=== PATIENT | male | born 1995 | race Caucasian/White ===

== ENCOUNTER 2021-01-11 20:33 | Emergency (ER) | payer MEDICAID ==
[~2021-01-11] VITALS: Ht 165.1 cm; Wt 70.3 kg
[2021-01-11 20:56] VITALS: Ht 165.1 cm; Wt 70.3 kg
[2021-01-11] MEDS ORDERED: FLE10 PO (21:52)
[2021-01-11] MEDS ORDERED: IBU600 M2 PO (21:52)
[2021-01-11 22:08] VITALS: BP 162/104
== END 2021-01-11 22:08 | disposition home or self-care (01) ==
LOC: ED 20:33
DX: S20.212A Contusion of left front wall of thorax, initial encounter (principal); W18.30XA Fall on same level, unspecified, initial encounter; Y93.23 Activity, snow (alpine) (downhill) skiing, snowboarding, sledding, tobogganing and snow tubing; Y92.89 Other specified places as the place of occurrence of the external cause; Y99.8 Other external cause status
CPT/HCPCS: J1885